=== PATIENT | female | born 1990 | race Caucasian/White ===

== ENCOUNTER 2021-06-02 15:00 | Outpatient (RCR) | payer BC, SELFPAY ==
[2021-06-02 14:54] VITALS: BMI 41.5
[2021-06-02 14:57] VITALS: BMI 41.5
== END 2021-06-29 14:55 | disposition home or self-care (01) ==
LOC: ANHDMC 15:00
PROVIDERS: Visit Provider Obstetrics & Gynecology
DX: Z68.41 Body mass index [BMI] 40.0-44.9, adult (principal); Z71.3 Dietary counseling and surveillance
CPT/HCPCS: 97802; 99199

== ENCOUNTER 2021-07-14 15:45 | Outpatient (RCR) | payer BC, SELFPAY ==
[2021-07-14 15:49] VITALS: BMI 40.8
[2021-07-14 15:51] VITALS: BMI 40.8
== END 2021-09-30 07:21 | disposition home or self-care (01) ==
LOC: ANHDMC 15:45
PROVIDERS: Visit Provider Obstetrics & Gynecology
DX: Z68.41 Body mass index [BMI] 40.0-44.9, adult (principal); Z71.3 Dietary counseling and surveillance
CPT/HCPCS: 97803; 99199